=== PATIENT | male | born 1975 | race Caucasian/White ===

== ENCOUNTER 2019-04-09 06:38 | Emergency (ER) | payer SELFPAY ==
[~2019-04-09] VITALS: Ht 190.5 cm; Wt 82.0 kg
--- NOTE | 2019-04-09 08:10 | RAD ---
RIBS LEFT AND PA CHEST History: Anterior chest pain after a fall 8 days ago Comparison: None. Findings: Single view of the chest and 4 additional views of the left ribs are submitted. There is no lobar consolidation, pleural fluid, pneumothorax. Heart size is within normal limits. There is cervical fusion hardware which is not fully included. No displaced left rib fracture is identified by radiographs. Impression: 1. No displaced rib fracture is identified by radiographs, also no radiographic evidence of acute cardiopulmonary disease. Electronically signed by: Brady Alejandro MD (04/09/2019 8:07 AM) [facility]
[2019-04-09] MEDS ORDERED: IBUP-1060 PO (08:28)
--- NOTE | 2019-04-09 08:29 | PHYS DOC ---
Past Medical History Past Medical History: Other Additional Past Medical Histor: PERICARDITIS Past Surgical History: Other Additional Past Surgical Histo: SPINE SURGERY Alcohol Use: None Adult General Chief Complaint Chief Complaint: MECHANICAL FALL HPI HPI Patient is a 43 year old [f__sex] who presents with [] Review of Systems Review of Systems Constitutional: Denies fever or chills [] Eyes: Denies change in visual acuity, redness, or eye pain [] HENT: Denies nasal congestion or sore throat [] Respiratory: Denies cough or shortness of breath [] Cardiovascular: No additional information not addressed in HPI [] GI: Denies abdominal pain, nausea, vomiting, bloody stools or diarrhea [] : Denies dysuria or hematuria [] Musculoskeletal: Denies back pain or joint pain [] Integument: Denies rash or skin lesions [] Neurologic: Denies headache, focal weakness or sensory changes [] Endocrine: Denies polyuria or polydipsia [] All other systems were reviewed and found to be within normal limits, except as documented in this note. Allergies Allergies Allergies Coded Allergies Type Severity Reaction Last Updated Verified bupropion Allergy Intermediate RASH ALL OVER 04/09/19 Yes Physical Exam Physical Exam Constitutional: Well developed, well nourished, no acute distress, non-toxic appearance. [] HENT: Normocephalic, atraumatic, bilateral external ears normal, oropharynx moist, no oral exudates, nose normal. [] Eyes: PERRLA, EOMI, conjunctiva normal, no discharge. [] Neck: Normal range of motion, no tenderness, supple, no stridor. [] Cardiovascular:Heart rate regular rhythm, no murmur [] Lungs & Thorax: Bilateral breath sounds clear to auscultation [] Abdomen: Bowel sounds normal, soft, no tenderness, no masses, no pulsatile masses. [] Skin: Warm, dry, no erythema, no rash. [] Back: No tenderness, no CVA tenderness. [] Extremities: No tenderness, no cyanosis, no clubbing, ROM intact, no edema. [] Neurologic: Alert and oriented X 3, normal motor function, normal sensory function, no focal deficits noted. [] Psychologic: Affect normal, judgement normal, mood normal. [] Current Patient Data Vital Signs Vital Signs Date Time Temp Pulse Resp B/P (MAP) Pulse Ox O2 Delivery O2 Flow Rate FiO2 04/09/19 07:20 97.9 67 16 153/123 (133) 99 Room Air 97.9 EKG EKG [] Radiology/Procedures Radiology/Procedures [] Course & Med Decision Making Course & Med Decision Making Pertinent Labs and Imaging studies reviewed. (See chart for details) [] Dragon Disclaimer Dragon Disclaimer This electronic medical record was generated, in whole or in part, using a voice recognition dictation system. Departure Departure Impression: Primary Impression: Chest wall contusion Disposition: HOME, SELF-CARE (at 0 [phone]) Condition: STABLE Referrals: NO PCP (PCP) Patient Instructions: Chest Contusion Additional Instructions: Drink plenty of liquids Follow-up with your primary care physician in 3-5 days Return to ER if not getting better Apply ice on the affected area Thank you for visiting [facility]. We appreciate you trusting us with your care. If any additional problems come up don't hesitate to return to visit us. Please follow up with your primary care provider so they can plan additional care if needed and know about the problem that you had. If symptoms worsen come back to the Emergency Department. Any concerning symptoms that start such as chest pain, shortness of air, weakness or numbness on one side of the body, running high fevers or any other concerning symptoms return to the ER. Scripts Ibuprofen (IBUPROFEN) 800 Mg Tablet 800 MG PO PRN Q8HRS PRN for INFLAMMATION, #20 TAB Prov: JON ASHLEY MD 04/09/19 Problem Qualifiers Primary Impression: Chest wall contusion Encounter type: initial encounter Laterality: left Qualified Codes: S20 .212A - Contusion of left front wall of thorax, initial encounter JON ASHLEY MD Apr 09, 2019 08:29
[2019-04-09 08:52] VITALS: BP 143/91
== END 2019-04-09 08:51 | disposition home or self-care (01) ==
LOC: ER 06:38
DX: S20.212A Contusion of left front wall of thorax, initial encounter (principal); Z88.8 Allergy status to other drugs, medicaments and biological substances; Z98.890 Other specified postprocedural states; W19.XXXA Unspecified fall, initial encounter; Y93.89 Activity, other specified; Y92.89 Other specified places as the place of occurrence of the external cause; Y99.8 Other external cause status
CPT/HCPCS: 71101; 99284